=== PATIENT | male | born 1985 | race Caucasian/White ===

== ENCOUNTER 2022-10-06 01:22 | Emergency (ER) | payer SELFPAY ==
[2022-10-06 01:33] VITALS: BP 112/69; PULSE 70; RESP 18; TEMP 98.1; BMI 22.8
[2022-10-06] MEDS ORDERED: IBUPROFEN 400 MG TABLET (FP) PO ONE ×2 (01:39→01:41)
[2022-10-06] MEDS ORDERED: ACETAMINOPHEN 500 MG TABLET (FP) PO ONE (01:39)
[2022-10-06] MEDS ORDERED: ACETAMINOPHEN 325 MG TABLET (FP) ONE (01:41)
== END 2022-10-06 03:55 | disposition home or self-care (01) ==
LOC: JER 01:22
PROC: 2W3EX1Z Immobilization of Right Hand using Splint (ICD-10-PCS; principal; 2022-10-06)
DX: S62.352A Nondisplaced fracture of shaft of third metacarpal bone, right hand, initial encounter for closed fracture (principal); M79.641 Pain in right hand; W10.8XXA Fall (on) (from) other stairs and steps, initial encounter
CPT/HCPCS: 73070-TC-RT-FY; 73090-TC-RT-FY; 73110-TC-RT-FY; 73130-TC-RT-FY; 99283-25